=== PATIENT | female | born 1970 | race Caucasian/White ===

== ENCOUNTER 2016-10-24 02:53 | Emergency (ER) | payer OTHER, MEDICAID ==
[2016-10-24 03:08] VITALS: BP 121/89; BMI 27.3
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
== END 2016-10-24 03:58 | disposition home or self-care (01) ==
LOC: ER 02:53
DX: S00.03XA Contusion of scalp, initial encounter (principal); S09.8XXA Other specified injuries of head, initial encounter; Y04.0XXA Assault by unarmed brawl or fight, initial encounter; Y92.9 Unspecified place or not applicable
CPT/HCPCS: 70450; 99282; 99283

== ENCOUNTER 2017-09-28 12:25 | Emergency (ER) | payer OTHER, MEDICAID ==
[2017-09-28 12:32] VITALS: BMI 30.1
--- NOTE | 2017-09-28 12:50 | DR.CP ---
HPI - Time Seen Time seen: 12:40 - PCP Primary Care Physician: TYRONE HILTON - HPI Comment HPI Comment: LEFT SUB SCAPULAR PAIN RADIATING TO LEFT BREAST. PAIN DULL ACHE AND CONSTANT. STARTED DURING THE NIGHT. GETTING WORSE. PAIN INCREASING. TOOK MEDS AT HOME BUT DID NOT HELP. - Complaint Chief Complaint Doctor Comments: CHEST PAIN FOR SEVERAL HOURS. Chief Complaint:: PT C/O LASTNIGHT HURTING AROUND HER LEFT UPPER BACK AND PAIN HAS RADIATED TO UNDER HER LEFT BREASTS TO HER LEFT CHEST,,,,,, PT C/O PAIN IS SOMETIMES PAIN IS SHARP AND DULL . - Reviewed Nurses Notes Review: Yes - Source History Provided: Patient - Mode of Arrival Mode of Arrival: Ambulatory - Timing Onset of Chief Complaint: 09/28/17 Came on: Suddenly Pain: Present Now - Duration Duration: Constant Duration: Hours - Location Chest Pain Radiation Location: Left Shoulder - Context Onset: At rest, While Asleep Cardiac Risk Factors: None PE Risk Factors: None History of: None Prehospital Care: None - Quality Quality: Sharp, Aching - Severity Severity: Moderate - Modifying Factors Worsens: Nothing Impoves: Nothing - Associated Signs and Symptoms Associated Signs and Symptoms: Shortness of Breath. denies: Diaphoresis PMH - PMH Past Medical History: Yes Past Medical History: Anxiety, Arthritis, Depression, Kidney Stones Past Medical History Comment: FIBRO, DDD , BI-POLAR Past Surgical History: Yes Surgical History: , Cholecystectomy, Hysterectomy, Ortho Surgery, Lithotripsy - Family History History of Family Medical Conditions: Yes Family Medical History: Diabetes Mellitus Family Medical History Comment: AFIB - Social History Does patient currently use any type of tobacco product: Yes Have you used tobacco products in the last 12 months: Yes Type of Tobacco Use: Cigarettes How many years tobacco product used: 30 Does any household member use tobacco: No Alcohol Use: None Do you use any recreational Drugs:: No Lives With: Family Lives Where: Home - infectious screening In the last 2 months have you had wt loss of >10#?: NO Have you had fever, night sweats or hemotysis?: No Have you traveled outside the country in the last 6 months?: No Isolation: Standard ROS - Review of Systems Constitutional: Weakness, Fatigue. negative: Chills, Diaphoresis, Fever Eyes: No Symptoms Reported. negative: Eye Pain, Discharge ENTM: No Symptoms Reported. negative: Ear Pain, Nose Discharge, Nose Congestion , Throat Pain Respiratoy: No Symptoms Reported, Non-Productive Cough, Short of Breath. negative: Wheezing, Hemoptysis Cardiovascular: Chest Pain. negative: Palpitations, Syncope Gastrointestinal/Abdominal: Abdominal Pain Genitourinary: No Symptoms Reported. negative: Dysuria, Frequency, Hematuria Neurological: No Symptoms Reported, Weakness, Dizziness Musculoskeletal: No Symptoms Reported Integumentary: No Symptoms Reported Hematologic/Lymphatic: No Symptoms Reported Endocrine: No Symptoms Reported All Other Systems: Reviewed and Negative PE - Vitals Vitals: Temperature 97.6 F Pulse Rate [Apical] 64 Pulse Rate 87 Respiratory Rate 15 Blood Pressure [Left Arm] 117/76 Blood Pressure 140/86 O2 Sat by Pulse Oximetry 96 - General Limitations: No Limitations General Appearance: Alert - Head Head Exam: Normal Inspection - Eyes Eye exam: Normal Appearance - ENT ENT Exam: Normal External Ear Exam - Chest Chest Inspection: Symmetric Chest Wall Rise - Respiratory Respiratory Exam: Normal Lung Sounds Bilat. negative: Chest Wall Tenderness Respiratory Exam: Bilateral Rhonchi, Left Rhonchi, Right Rhonchi, Upper Rhonchi , Lower Rhonchi - Cardiovascular Cardiovascular Exam: Regular Rate, Normal Rhythm, Normal Heart Sounds Pulse: Normal, Radial, Femoral Edema: Normal - Abdominal Exam Abdominal Exam: Normal Bowel Sounds, Soft. negative: Tenderness - Extremities Extremities Exam: Normal Inspection - Back Back Exam: Normal Inspection - Neurologic Neurological Exam: Alert, Oriented X3, CN II-XII Intact. negative: Motor Sensory Deficit - Psychiatric Psychiatric Exam: Normal Affect, Normal Mood - Skin Skin Exam: Normal Color MDM - Differential Diagnosis Differential Diagnosis: Angina, Chest Wall Pain, CHF, Costochondritis, Esophageal Reflux/Spasm, Gastritis, Myocardial Infarction, Pericarditis, Pleuritis, Pancreatitis, Pneumonia, Pneumothorax, Pulmonary Embolus Course - Treatment Treatment: SEE ORDERS. - Education/Counseling Education/Counseling: Patient, Education Educated On: Treatment, Diagnosis, Needs for Follow Up ROR - Labs Reviewed Laboratory Results Reviewed?: Yes Result Diagrams: 09/28/17 13:12 09/28/17 13:12 Laboratory: WBC 8.6 X10^3/uL (3.6-10.0) 09/28/17 13:12 RBC 4.84 X10^6/uL (3.5-5.4) 09/28/17 13:12 Hgb 14.8 g/dL (12.0-16.0) 09/28/17 13:12 Hct 42.8 % (36.0-47.0) 09/28/17 13:12 MCV 88.3 fL (80.0-100.0) 09/28/17 13:12 MCH 30.5 pg (27.0-34.0) 09/28/17 13:12 MCHC 34.5 g/dL (33.0-35.0) 09/28/17 13:12 RDW 14.0 % (11.6-16.5) 09/28/17 13:12 Plt Count 266 X10^3/uL (150.0-450.0) 09/28/17 13:12 MPV 8.2 fL (7.4-11.0) 09/28/17 13:12 Neut % (Auto) 70.2 % (42.0-75.0) 09/28/17 13:12 Lymph % (Auto) 22.1 % (21.0-51.0) 09/28/17 13:12 [place] % (Auto) 4.3 % (0.0-13.0) 09/28/17 13:12 Eos % (Auto) 2.3 % (0.9-2.9) 09/28/17 13:12 Baso % (Auto) 1.1 % (0.2-1.0) H 09/28/17 13:12 Neut # (Auto) 6.0 x10^3/uL (2.2-4.8) H 09/28/17 13:12 Lymph # (Auto) 1.9 X10^3/uL (1.3-2.9) 09/28/17 13:12 [place] # (Auto) 0.4 x10^3/uL (0.3-0.8) 09/28/17 13:12 Eos # (Auto) 0.2 x10^3/uL (0.0-0.2) 09/28/17 13:12 Baso # (Auto) 0.1 X10^3/uL (0.0-0.1) 09/28/17 13:12 Absolute Nucleated RBC 0.1 /100WBC 09/28/17 13:12 D-Dimer < 100 ng/mL (0-400) 09/28/17 13:12 Sodium 138 mmol/L (136-145) 09/28/17 13:12 Corrected Sodium 139 mmol/L (136-145) 09/28/17 13:12 Potassium 4.0 mmol/L (3.5-5.1) 09/28/17 13:12 Chloride 102 mmol/L (98-107) 09/28/17 13:12 Carbon Dioxide 27.8 mmol/L (21-32) 09/28/17 13:12 BUN 11 mg/dL (7-18) 09/28/17 13:12 Creatinine 0.92 mg/dL (0.55-1.02) 09/28/17 13:12 Est GFR (MDRD) Af Amer > 60 (>60) 09/28/17 13:12 Est GFR (MDRD) Non-Af > 60 (>60) 09/28/17 13:12 Glucose 158 mg/dL (65-99) H 09/28/17 13:12 Calcium 8.8 mg/dL (8.5-10.1) 09/28/17 13:12 Corrected Calcium TNP 09/28/17 13:12 Total Bilirubin 0.40 mg/dL (0.2-1.0) 09/28/17 13:12 AST 15 Units/L (15-37) 09/28/17 13:12 ALT 19 Units/L (12-78) 09/28/17 13:12 Alkaline Phosphatase 91 Units/L (46-116) 09/28/17 13:12 Creatine Kinase 54 Units/L (26-192) 09/28/17 13:12 CK-MB (CK-2) < 1.0 ng/mL (0-4.0) 09/28/17 13:12 CK/CKMB % Calc 1.9 % (<4) 09/28/17 13:12 Troponin I < 0.02 ng/mL (0-1.5) 09/28/17 13:12 Total Protein 7.5 g/dL (6.4-8.2) 09/28/17 13:12 Albumin 3.7 g/dL (3.4-5.0) 09/28/17 13:12 Globulin 3.8 g/dL (2.5-4.5) 09/28/17 13:12 Albumin/Globulin Ratio 1.0 Ratio (1.1-2.1) L 09/28/17 13:12 H. pylori IgG Antibody Negative (NEGATIVE) 09/28/17 13:12 - XRAY XRAY Interpreted by: Radiologist XRAY Findings: REPORT DISCUSS WITH PATIENT. - EKG Rhythm: NSR (EKG NOTED.) - Diagnosis Discharge Problem: Chest pain Qualifiers: Chest pain type: precordial pain Qualified Code(s): R07.2 - Precordial pain - Discharge Plan Disposition: 01 HOME, SELF-CARE Condition: Stable - Follow ups/Referrals Follow ups/Referrals: Rajat Gastelum [Primary Care Provider] - 09/29/17 - Instructions Instructions: Chest Pain Observation Additional Instructions: RETURN TO ED IF WORSE.
[2017-09-28] MEDS ORDERED: NITROSTAT SL PRN (12:52)
[2017-09-28] MEDS ORDERED: PEPCID 20 MG IV PREMIX* 20 MG/50 ML BAG IV ONE ×2 (12:53→12:57)
[2017-09-28] MEDS ORDERED: ASPIRIN ONE (12:57)
[2017-09-28] MEDS ORDERED: ASPIRIN 81 MG CHEWTAB PO SCH (13:00)
[2017-09-28 13:20] LABS: BASOPHILS # (AUTO) 0.1 X10^3/uL (0.0-0.1); BASOPHILS % (AUTO) 1.1 % (0.2-1.0); EOSINOPHILS # (AUTO) 0.2 x10^3/uL (0.0-0.2); EOSINOPHILS % (AUTO) 2.3 % (0.9-2.9); HEMATOCRIT 42.8 % (36.0-47.0); HEMOGLOBIN 14.8 g/dL (12.0-16.0); LYMPHOCYTES # (AUTO) 1.9 X10^3/uL (1.3-2.9); LYMPHOCYTES % (AUTO) 22.1 % (21.0-51.0); MEAN CORPUSCULAR HEMOGLOBIN 30.5 pg (27.0-34.0); MEAN CORPUSCULAR HGB CONC 34.5 g/dL (33.0-35.0); MEAN CORPUSCULAR VOLUME 88.3 fL (80.0-100.0); MEAN PLATELET VOLUME 8.2 fL (7.4-11.0); MONOCYTES # (AUTO) 0.4 x10^3/uL (0.3-0.8); MONOCYTES % (AUTO) 4.3 % (0.0-13.0); NEUTROPHILS % (AUTO) 70.2 % (42.0-75.0); PLATELET COUNT 266 X10^3/uL (150.0-450.0); RED BLOOD COUNT 4.84 X10^6/uL (3.5-5.4); WHITE BLOOD COUNT 8.6 X10^3/uL (3.6-10.0)
--- NOTE | 2017-09-28 13:28 | RAD ---
HISTORY: Chest pain. Study: Portable chest. Comparison: None. Findings: The trachea is midline. The cardiac silhouette is unremarkable. No obvious focal consolidation, ple ural effusion, or pneumothorax. Partially visualized cervical hardware. The osseous structures are o therwise unremarkable. IMPRESSION: No acute cardiopulmonary disease. Reported By:
[2017-09-28 13:36] LABS: BLOOD UREA NITROGEN 11 mg/dL (7-18); CALCIUM 8.8 mg/dL (8.5-10.1); CARBON DIOXIDE 27.8 mmol/L (21-32); CHLORIDE 102 mmol/L (98-107); COR NA(FOR HYPERGLY) 139 mmol/L (136-145); CREATININE 0.92 mg/dL (0.55-1.02); SODIUM 138 mmol/L (136-145); TROPONIN I < 0.02 ng/mL (0-1.5); eGFR BLACK RACES > 60 (>60); eGFR NON BLACK RACES > 60 (>60)
[2017-09-28 13:40] LABS: ALANINE AMINOTRANSFERASE 19 Units/L (12-78); ALBUMIN 3.7 g/dL (3.4-5.0); ALKALINE PHOSPHATASE 91 Units/L (46-116); ASPARTATE AMINO TRANSFERASE 15 Units/L (15-37); CKMB % 1.9 % (<4); CREATINE KINASE 54 Units/L (26-192); CREATINE KINASE MB < 1.0 ng/mL (0-4.0); TOTAL PROTEIN 7.5 g/dL (6.4-8.2)
[2017-09-28] MEDS ORDERED: TORADOL 30 MG VIAL IVP ONE (13:59)
[2017-09-28 14:08] VITALS: BP 117/76
[2017-09-28] MEDS ORDERED: TORADOL 30 MG VIAL ONE (14:08)
== END 2017-09-28 14:35 | disposition home or self-care (01) ==
LOC: ER 12:42
DX: R07.2 Precordial pain (principal)
CPT/HCPCS: 36415; 71045; 80053; 82550; 82553; 84484; 85025; 85378; 86677; 93005; 93010; 96365; 96374; 96375; 99283; A4222; S0028; J1885

== ENCOUNTER 2020-07-25 10:14 | Observation (INO) ==
[2020-07-25 10:25] VITALS: BMI 28.3
--- NOTE | 2020-07-25 10:37 | DR.CP ---
HPI Time Seen Time Seen by Provider: 07/25/20 10:24 HPI Comment HPI Comment: PATIENT IS 49YR OLD FEMALE IN ER WITH CHEST PAIN. PAIN SHARP, 8/10 RADIATING TO THE BACK. DENIES SIMILAR PAIN IN THE PAST. PAIN WAS CONTINOUS AND LASTED OVER 30MINS. PATIENT DID NOT TAKE MEDICATION FOR PAIN. HISTORY DM AND F IBROMYALGIA. NO FEVER, COUGH OR CONGESTION. HAVE NOT BEING AROUND COVID 19 VIRUS PATIENT. PAIN ASSOCIATED WITH SOB AND WEAKNESS. Complaint Chief Complaint Doctor Comments: CHEST PAIN UNDER LEFT BREAST TIMES 30MINS TODAY. COVID-19 Coronavirus risk:travel/contact w/high risk person: No Has patient experienced Coronavirus symptoms: No Reviewed Nurses Notes Review: Yes Source History Provided: Patient PMH PMH Past Medical History: Diabetes Past Surgical History: Yes Surgical History: Hysterectomy Family History Family Medical History: Diabetes Mellitus Social History Do you use any recreational Drugs:: No Travel Risk Coronavirus risk:travel/contact w/high risk person: No Has patient experienced Coronavirus symptoms: No ROS Review of Systems Constitutional: No Symptoms Reported, See HPI, Weakness and Fatigue; negative Fever Eyes: No Symptoms Reported and See HPI ENTM: No Symptoms Reported and See HPI; negative Nose Discharge and Nose Congestion Respiratoy: Short of Breath; negative Moist Cough and Wheezing Cardiovascular: See HPI and Chest Pain; negative Edema and Palpitations Gastrointestinal/Abdominal: No Symptoms Reported and See HPI; negative Abdominal Pain, Diarrhea and Vomiting Genitourinary: No Symptoms Reported and See HPI; negative Dysuria, Frequency and Hematuria Neurological: See HPI, Headache and Weakness; negative Dizziness Musculoskeletal: See HPI and Muscle Pain; negative Back Pain Integumentary: No Symptoms Reported and See HPI; negative Change in Color, Rash and Juandice Hematologic/Lymphatic: No Symptoms Reported and See HPI; negative Easy Bruising and Swollen Glands Endocrine: No Symptoms Reported and See HPI; negative Increased Thirst and Increased Urine Psychiatric: No Symptoms Reported and See HPI All Other Systems: Reviewed and Negative PE Vitals Vitals: Temperature 98.1 F Pulse Rate [Brachial] 64 Pulse Rate 57 Respiratory Rate 16 Blood Pressure [Left Arm] 145/79 Blood Pressure 123/73 O2 Sat by Pulse Oximetry 96 General Limitations: No Limitations General Appearance: Alert and In No Apparent Distress Head Head Exam: Normal Inspection and Atraumatic Eyes Eye exam: Normal Appearance and PERRL; negative Scleral Icterus and Conjunctival Injection ENT ENT Exam: Normal Exam, Normal Oropharynx, Normal External Ear Exam and TM's Normal Bilaterally Chest Chest Inspection: Normal Inspection and Symmetric Chest Wall Rise; negative Tenderness Respiratory Respiratory Exam: Normal Lung Sounds Bilat; negative Accessory Muscle Use, Chest Wall Tenderness and Respiratory Distress Respiratory Exam: Bilateral: Clear to Auscultation Cardiovascular Cardiovascular Exam: Regular Rate, Normal Rhythm and Normal Heart Sounds; negative Systolic Murmur and Diastolic Murmur Pulse: Normal Edema: Normal Abdominal Exam Abdominal Exam: Normal Inspection, Normal Bowel Sounds and Soft; negative Tenderness Extremities Extremities Exam: Normal Inspection and Normal Capillary Refill; negative Tenderness, Edema and Calf Tenderness Back Back Exam: Normal Inspection; negative (R) CVA Tenderness and (L) CVA Tenderness Neurologic Neurological Exam: Alert, Oriented X3 and CN II-XII Intact; negative Motor Sensory Deficit Psychiatric Psychiatric Exam: Normal Affect and Normal Mood Skin Skin Exam: Warm, Dry, Intact and Normal Color MDM Additional Information Additional Information Obtained From: Old Records Differential Diagnosis Differential Diagnosis: Chest Wall Pain, CHF, Costochondritis, Gastritis, Myocardial Infarction, Pericarditis, Pleuritis, Pancreatitis, Pneumonia, Pneumothorax and Pulmonary Embolus COURSE Treatment Treatment: SEE ORDERS. Consultation Consultation Comments: DISCUSSED PATIENT WITH DR. HANSEN. HE WILL ADMIT PATIENT. Education/Counseling Education/Counseling: Patient Educated On: Diagnosis ROR Labs Reviewed Laboratory Results Reviewed?: Yes Result Diagrams: 07/26/20 06:04 07/26/20 06:04 Laboratory: WBC 6.9 X10^3/uL (3.6-10.0) 07/25/20 10:34 RBC 4.71 X10^6/uL (3.5-5.4) 07/25/20 10:34 Hgb 14.4 g/dL (12.0-16.0) 07/25/20 10:34 Hct 42.5 % (36.0-47.0) 07/25/20 10:34 MCV 90.3 fL (80.0-100.0) 07/25/20 10:34 MCH 30.6 pg (27.0-34.0) 07/25/20 10:34 MCHC 33.9 g/dL (33.0-35.0) 07/25/20 10:34 RDW 14.3 % (11.6-16.5) 07/25/20 10:34 Plt Count 249 X10^3/uL (150.0-450.0) 07/25/20 10:34 MPV 8.0 fL (7.4-11.0) 07/25/20 10:34 Neut % (Auto) 63.8 % (42.0-75.0) 07/25/20 10:34 Lymph % (Auto) 23.4 % (21.0-51.0) 07/25/20 10:34 [place] % (Auto) 8.8 % (0.0-13.0) 07/25/20 10:34 Eos % (Auto) 3.0 % (0.9-2.9) H 07/25/20 10:34 Baso % (Auto) 1.0 % (0.2-1.0) 07/25/20 10:34 Neut # (Auto) 4.4 x10^3/uL (2.2-4.8) 07/25/20 10:34 Lymph # (Auto) 1.6 X10^3/uL (1.3-2.9) 07/25/20 10:34 [place] # (Auto) 0.6 x10^3/uL (0.3-0.8) 07/25/20 10:34 Eos # (Auto) 0.2 x10^3/uL (0.0-0.2) 07/25/20 10:34 Baso # (Auto) 0.1 X10^3/uL (0.0-0.1) 07/25/20 10:34 Absolute Nucleated RBC 0.0 /100WBC 07/25/20 10:34 D-Dimer 0.25 ug/ml (0.0-0.57) 07/25/20 10:34 Sample Site Lbra 07/25/20 12:38 ABG pH 7.400 (7.35-7.45) 07/25/20 12:38 ABG pCO2 47.0 mmHg (35.0-45.0) H 07/25/20 12:38 ABG pO2 83.0 mmHg (80.0-100.0) 07/25/20 12:38 ABG HCO3 29.1 mmol/L (22-26) H 07/25/20 12:38 ABG O2 Saturation 96.0 % (90-100) 07/25/20 12:38 ABG Base Excess 3.6 mmol/L (-2.0-2.0) H 07/25/20 12:38 John Test N/a 07/25/20 12:38 A-a Gradient 8.0 mmHg 07/25/20 12:38 FiO2 21.0 07/25/20 12:38 Blood Gas Comments Pt zeina well elj 07/25/20 12:38 Sodium 140 mmol/L (136-145) 07/25/20 10:34 Corrected Sodium 142 mmol/L (136-145) 07/25/20 10:34 Potassium 4.4 mmol/L (3.5-5.1) 07/25/20 10:34 Chloride 105 mmol/L (98-107) 07/25/20 10:34 Carbon Dioxide 26.2 mmol/L (21-32) 07/25/20 10:34 BUN 14 mg/dL (7-18) 07/25/20 10:34 Creatinine 0.92 mg/dL (0.55-1.02) 07/25/20 10:34 Est GFR (MDRD) Af Amer > 60 (>60) 07/25/20 10:34 Est GFR (MDRD) Non-Af > 60 (>60) 07/25/20 10:34 Glucose 163 mg/dL (65-99) H 07/25/20 10:34 Calcium 9.2 mg/dL (8.5-10.1) 07/25/20 10:34 Corrected Calcium TNP 07/25/20 10:34 Ferritin 135 ng/mL (8-252) 07/25/20 11:52 Total Bilirubin 0.20 mg/dL (0.2-1.0) 07/25/20 10:34 AST 15 Units/L (15-37) 07/25/20 10:34 ALT 14 Units/L (12-78) 07/25/20 10:34 Alkaline Phosphatase 94 Units/L (46-116) 07/25/20 10:34 Creatine Kinase 63 Units/L (26-192) 07/25/20 10:34 CK-MB (CK-2) 1.1 ng/mL (0-4.0) 07/25/20 10:34 CK/CKMB % Calc 1.8 % (<4) 07/25/20 10:34 Troponin I < 0.02 ng/mL (0-1.5) 07/25/20 10:34 C-Reactive Protein 2.80 mg/L (0-3.0) 07/25/20 11:52 Total Protein 6.9 g/dL (6.4-8.2) 07/25/20 10:34 Albumin 3.4 g/dL (3.4-5.0) 07/25/20 10:34 Globulin 3.5 g/dL (2.5-4.5) 07/25/20 10:34 Albumin/Globulin Ratio 1.0 Ratio (1.1-2.1) L 07/25/20 10:34 SARS-CoV-2 (PCR) Positive (NEGATIVE) A 07/25/20 11:59 Influenza Type A (PCR) Negative (NEGATIVE) 07/25/20 11:59 Influenza Type B (PCR) Negative (NEGATIVE) 07/25/20 11:59 RSV (PCR) Negative (NEGATIVE) 07/25/20 11:59 XRAY XRAY Interpreted by: Radiologist (REPORTS NOTED AND DISCUSSED WITH PATIENT.) and Self EKG Rate: 69 [place]: Normal Rhythm: NSR Block: None Hypertrophy: None ST: Normal Opioid Opioid Risk Tool Age (Josh box if 16-45): No History of Preadolescent Sexual Abuse: No Total: 0 Total Score Risk Category: Low Risk Copyright: Kendrick HURLEY predicting aberrant behaviors Diagnosis Discharge Problem: Chest pain Qualifiers: Chest pain type: unspecified Qualified Code(s): R07.9 - Chest pain, unspecified Instructions Instructions: Nonspecific Chest Pain Dehydration, Adult, [id number] Chest Wall Pain Forms: Excuse From Work or School Precautions for COVID19 Patient Portal Social Distancing
[2020-07-25 10:44] LABS: BASOPHILS # (AUTO) 0.1 X10^3/uL (0.0-0.1); EOSINOPHILS # (AUTO) 0.2 x10^3/uL (0.0-0.2); HEMATOCRIT 42.5 % (36.0-47.0); HEMOGLOBIN 14.4 g/dL (12.0-16.0); LYMPHOCYTES # (AUTO) 1.6 X10^3/uL (1.3-2.9); LYMPHOCYTES % (AUTO) 23.4 % (21.0-51.0); MEAN CORPUSCULAR HEMOGLOBIN 30.6 pg (27.0-34.0); MEAN CORPUSCULAR HGB CONC 33.9 g/dL (33.0-35.0); MEAN CORPUSCULAR VOLUME 90.3 fL (80.0-100.0); MONOCYTES # (AUTO) 0.6 x10^3/uL (0.3-0.8); MONOCYTES % (AUTO) 8.8 % (0.0-13.0); NEUTROPHILS # (AUTO) 4.4 x10^3/uL (2.2-4.8); NEUTROPHILS % (AUTO) 63.8 % (42.0-75.0); PLATELET COUNT 249 X10^3/uL (150.0-450.0); RED BLOOD COUNT 4.71 X10^6/uL (3.5-5.4); RED CELL DISTRIBUTION WIDTH 14.3 % (11.6-16.5); WHITE BLOOD COUNT 6.9 X10^3/uL (3.6-10.0)
--- NOTE | 2020-07-25 10:54 | RAD ---
HISTORYSOB, CHEST PAINSTUDYCHEST, 1 [id number] cardiomediastinal silhouette is stable. The lungs are clear without evidence of airspace disease or effusion. No pneumothorax. The bony thorax appears intact. Partially visualized ACDF hardware.IMPRESSIONNo acute cardiopulmonary disease.Electronically signed by: DESMOND ANDERSEN (Jul 25, 2020 10:53:39)
[2020-07-25 11:02] LABS: BLOOD UREA NITROGEN 14 mg/dL (7-18); CALCIUM 9.2 mg/dL (8.5-10.1); CARBON DIOXIDE 26.2 mmol/L (21-32); CHLORIDE 105 mmol/L (98-107); COR NA(FOR HYPERGLY) 142 mmol/L (136-145); CREATININE 0.92 mg/dL (0.55-1.02); SODIUM 140 mmol/L (136-145); TROPONIN I < 0.02 ng/mL (0-1.5); eGFR NON BLACK RACES > 60 (>60)
[2020-07-25 11:06] LABS: ALANINE AMINOTRANSFERASE 14 Units/L (12-78); ALBUMIN 3.4 g/dL (3.4-5.0); ALKALINE PHOSPHATASE 94 Units/L (46-116); ASPARTATE AMINO TRANSFERASE 15 Units/L (15-37); CKMB % 1.8 % (<4); CREATINE KINASE 63 Units/L (26-192); CREATINE KINASE MB 1.1 ng/mL (0-4.0); TOTAL PROTEIN 6.9 g/dL (6.4-8.2)
[2020-07-25] MEDS ORDERED: NS 100 ML IV 100 ML IV ONE (11:58)
--- NOTE | 2020-07-25 12:42 | CT ---
HISTORYCHEST PAIN, SOBSTUDYCTA CHESTCOMPARISONNoneTECHNIQUEPulmonary angiogram protocol was performed after the administration of contrast. 3D images were performed. CT scan was performed following ALARA (As low as Reasonably Achievable).Coronal and Sagittal reformatted images were performed.FINDINGSThe thyroid gland is mildly enlarged. There is no axillary or mediastinal adenopathy. The ascending aorta measures approximately 4 by 3.8 centimeters. The pulmonary root iismeasuring approximately 31 millimeters. There is no pleural or pericardial effusions. No adrenal masses. Patient is status post cholecystectomy the spleen is no enlarged. There is no evidence of pulmonary embolism. No filling defects are present.Lung windows there is no evidence of focal pneumonia or pneumothorax. No significant bronchiectasis or atelectasis. No focal lung nodules.Bone windows there is no evidence of aggressive bone lesions. No acute fracturesIMPRESSIONNo radiographic evidence of pulmonary embolismNo focal pneumonia. Upper limits of normal ascending aorta.Electronically signed by: Marianne Horta (Jul 25, 2020 12:40:32)
[2020-07-25 12:44] LABS: ABG BASE EXCESS 3.6 mmol/L (-2.0-2.0); ABG HCO3 29.1 mmol/L (22-26)
[2020-07-25] MEDS ORDERED: ESTRADIOL TRANSDERMAL SCH (13:46)
[2020-07-25] MEDS ORDERED: INJECTOR SUBCUT SCH (13:46)
[2020-07-25] MEDS ORDERED: SEMAGLUTIDE SUBCUT SCH (13:46)
[2020-07-25] MEDS ORDERED: NORCO 10/325 TAB PO PRN (13:46)
[2020-07-25] MEDS ORDERED: IVERMECTIN PO SCH (14:00)
[2020-07-25 14:31] LABS: BILIRUBIN,URINE NEGATIVE (NEGATIVE); BLOOD/HEMOGLOBIN,URINE NEGATIVE (NEGATIVE); GLUCOSE, URINE NEGATIVE (NEGATIVE); KETONES,URINE NEGATIVE (NEGATIVE); LEUKOCYTE ESTERASE ,URINE NEGATIVE (NEGATIVE); NITRITES,URINE NEGATIVE (NEGATIVE); PH,URINE 6.5 (5.0 - 8.0); PROTEIN,URINE NEGATIVE (NEGATIVE); UROBILINOGEN,URINE NORMAL (NORMAL)
[2020-07-25 14:32] LABS: APPEARANCE,URINE CLEAR (CLEAR); COLOR,URINE YELLOW (YELLOW)
[2020-07-25] MEDS ORDERED: NS 1000 ML 1,000 ML ONE (15:08)
[2020-07-25] MEDS ORDERED: IVERMECTIN ONE (15:08)
[2020-07-25] MEDS: NS 1000 ML 1,000 ML IV SCH (15:28)
[2020-07-25 18:39] LABS: CKMB % 1.7 % (<4); CREATINE KINASE 69 Units/L (26-192); CREATINE KINASE MB 1.2 ng/mL (0-4.0); TROPONIN I < 0.02 ng/mL (0-1.5)
[2020-07-25] MEDS ORDERED: XANAX ONE (21:49)
[2020-07-25] MEDS ORDERED: PROTONIX TAB 40 MG PO ONE (21:49)
[2020-07-25] MEDS ORDERED: LOVENOX INJ 30 MG SYR SC ONE (21:49)
[2020-07-25] MEDS ORDERED: PEPCID TAB 20 MG ONE (21:49)
[2020-07-25] MEDS: FLONASE NASAL SPRAY ENOSTRIL SCH (21:52)
[2020-07-25] MEDS: LITHIUM CARBONATE (PLAIN) PO SCH (21:52)
[2020-07-25] MEDS: GLUCOPHAGE PO SCH (21:52)
[2020-07-25] MEDS: LOVENOX INJ 30 MG SYR SC SCH (21:52)
[2020-07-25] MEDS: PROTONIX TAB 40 MG PO SCH (21:53)
[2020-07-25] MEDS: PEPCID TAB 20 MG PO SCH (21:53)
[2020-07-25] MEDS: XANAX PO SCH (21:54)
[2020-07-25] MEDS: PAXIL PO SCH (22:33)
[2020-07-26 01:10] LABS: CKMB % 1.3 % (<4); CREATINE KINASE MB 0.8 ng/mL (0-4.0)
[2020-07-26] MEDS: NS 1000 ML 1,000 ML IV SCH ×2 (03:52→06:00)
[2020-07-26 05:00] LABS: ABG ALLEN TEST POS; ABG BASE EXCESS 1.8 mmol/L (-2.0-2.0); ABG HCO3 27.7 mmol/L (22-26)
--- NOTE | 2020-07-26 06:34 | RAD ---
HISTORYcovidSTUDYAP [id number] normal appearance of heart and lungs and mediastinum. There is no evidence for developing infiltrate, consolidation, edema or pleural fluid.IMPRESSIONNo change; no acute chest findings.Electronically signed by: JESSICA PAZ (Jul 26, 2020 06:33:04)
[2020-07-26 06:51] LABS: BASOPHILS # (AUTO) 0.1 X10^3/uL (0.0-0.1); BASOPHILS % (AUTO) 0.9 % (0.2-1.0); EOSINOPHILS # (AUTO) 0.2 x10^3/uL (0.0-0.2); EOSINOPHILS % (AUTO) 3.5 % (0.9-2.9); HEMATOCRIT 41.3 % (36.0-47.0); HEMOGLOBIN 13.6 g/dL (12.0-16.0); LYMPHOCYTES # (AUTO) 2.2 X10^3/uL (1.3-2.9); LYMPHOCYTES % (AUTO) 35.4 % (21.0-51.0); MEAN CORPUSCULAR HEMOGLOBIN 30.1 pg (27.0-34.0); MEAN CORPUSCULAR VOLUME 91.3 fL (80.0-100.0); MEAN PLATELET VOLUME 8.5 fL (7.4-11.0); MONOCYTES # (AUTO) 0.5 x10^3/uL (0.3-0.8); MONOCYTES % (AUTO) 7.8 % (0.0-13.0); NEUTROPHILS # (AUTO) 3.2 x10^3/uL (2.2-4.8); NEUTROPHILS % (AUTO) 52.4 % (42.0-75.0); PLATELET COUNT 235 X10^3/uL (150.0-450.0); RED BLOOD COUNT 4.52 X10^6/uL (3.5-5.4); RED CELL DISTRIBUTION WIDTH 14.3 % (11.6-16.5); WHITE BLOOD COUNT 6.1 X10^3/uL (3.6-10.0)
[2020-07-26 07:03] LABS: ALANINE AMINOTRANSFERASE 11 Units/L (12-78); ALBUMIN 2.9 g/dL (3.4-5.0); ALKALINE PHOSPHATASE 91 Units/L (46-116); ASPARTATE AMINO TRANSFERASE 13 Units/L (15-37); BLOOD UREA NITROGEN 15 mg/dL (7-18); CALCIUM 8.5 mg/dL (8.5-10.1); CARBON DIOXIDE 27.1 mmol/L (21-32); CHLORIDE 108 mmol/L (98-107); CHOL/HDL RATIO 4.3 (0.0-5.0); CHOLESTEROL 183 mg/dL (0-200); COR CA(FOR HYPOALB) 9.4 mg/dL (8.5-10.1); COR NA(FOR HYPERGLY) 144 mmol/L (136-145); CREATININE 0.81 mg/dL (0.55-1.02); HDL CHOLESTEROL 43 mg/dL (40-60); MAGNESIUM 1.8 mg/dL (1.7-2.9); SODIUM 142 mmol/L (136-145); TOTAL PROTEIN 6.2 g/dL (6.4-8.2); TRIGLYCERIDES 335 mg/dL (0-150); eGFR NON BLACK RACES > 60 (>60)
[2020-07-26] MEDS ORDERED: GLUCOPHAGE ONE (08:09)
[2020-07-26] MEDS ORDERED: MOBIC TAB 15 MG PO SCH (09:00)
[2020-07-26] MEDS: PAXIL PO SCH (10:04)
[2020-07-26] MEDS: GLUCOPHAGE PO SCH (10:04)
[2020-07-26] MEDS: LOVENOX INJ 30 MG SYR SC SCH (10:05)
[2020-07-26] MEDS: XANAX PO SCH (10:05)
[2020-07-26] MEDS: LITHIUM CARBONATE (PLAIN) PO SCH (10:05)
[2020-07-26] MEDS: PEPCID TAB 20 MG PO SCH (10:06)
[2020-07-26] MEDS: PROTONIX TAB 40 MG PO SCH (10:06)
[2020-07-26] MEDS: FLONASE NASAL SPRAY ENOSTRIL SCH (10:07)
[2020-07-26 11:10] LABS: CREATINE KINASE 50 Units/L (26-192); CREATINE KINASE MB < 1.0 ng/mL (0-4.0); TROPONIN I < 0.02 ng/mL (0-1.5)
[2020-07-26 13:41] VITALS: BP 120/75
--- NOTE | 2020-09-03 14:30 | DR.CARTERS ---
Short Stay Summary - Admission Date Date of Admission: 07/25/20 - Discharge Date Discharge Date: 07/26/20 - Admission Diagnoses (1) Chest pain, rule out acute myocardial infarction Status: Acute (2) Shortness of breath Status: Acute (3) COVID-19 Status: Acute - Hospital Course Hospital Course: IS A 49 YEAR OLD PATIENT OF OURS. WHO PRESENTED TO THE ER WITH COMPLAINTS OF CHEST PAIN. SYMPTOMS STARTED ABOUT 30 MINUTES PRIOR TO ARRIVAL TODAY. SHE DESCRIBED PAIN SHARP, RADIATING TO THE BACK AND LEFT BREAST, AND IT WAS RATED A 8/10. SHE DENIED SIMILAR PAIN IN THE PAST. SHE REPORTS THAT PAIN WAS CONTINUOUS AND LASTED OVER 30 MINUTES. ASSOCIATED SYMPTOMS INCLUDE SHORTNESS OF BREATH AND WEAKNESS. PMH INCLUDES DIABETES, FIBROMYALGIA, AND HYSTERECTOMY. SHE DID TEST POSITIVE FOR COVID SEVERAL WEEKS AGO AND HAS BEEN RECEIVING TREATMENT. ON ARRIVAL TO THE ER, HER VITALS WERE 98.1-64-18-97%-145/79. LABS WERE OBTAINED. GLUCOSE WAS SLIGHTLY ELEVATED AT 163, OTHERWISE, SHE IS HEMODYNAMICALLY STABLE. CARDIAC ENZYMES ARE WITHIN NORMAL LIMITS. COVID POSITIVE. INFLUENZA AND RSV NEGATIVE. ABG REVEALED: PH 7.400, PC02 47, P02 83, HC03 29.1, 02 SAT 96, BASE EXCESS 3.6, A-A GRADIENT 8.0, FI02 21.0. URINALYSIS IS UNREMARKABLE. A CHEST XRAY WAS OBTAINED AND REVEALED: NO ACUTE CARDIOPULMONARY DISEASE. EKG REVEALED: SINUS RHYTHM WITH HR 61. A CHEST CTA WAS OBTAINED AND REVEALED: No radiographic evidence of pulmonary embolism. No focal pneumonia. Upper limits of normal ascending aorta. EKG REVEALED: SINUS RHYHTM WITH HR 61. SHE WAS ADMITTED TO THE HOSPITAL FOR FURTHER EVALUATION AND TREATMENT OF CHEST PAIN, RULE OUT ACUTE PR, SOB, AND COVID-19. SHE WAS STARTED ON NORMAL SALINE AT 75 ML/HR, OTBS ACHS, FLONASE 2 SPRAYS TO EACH NOSTRIL BID, GLUCOPHAGE 500MG PO BID, LITHIUM 300MG PO BID, LOVENOX 30MG SC BID, PEPCID 20MG PO BID, PROTONIX 40MG PO BID, XANAX 1MG PO BID, MOBIC 15MG PO DAILY, AND PAXIL 30MG PO DAILY. OTHERWISE, WE PLANNED TO FOLLOW UP WITH AM LABS AND CONTINUE TO MONITOR. ON MORNING ROUNDS, PATIENT IS ALERT AND ORIENTED, LYING IN BED ON MORNING ROUNDS. SHE DENIES CHEST PAIN OR SHORTNESS OF BREATH THIS MORNING. SHE CONTINUES WITH AN OCCASIONAL NON-PRODUCTIVE COUGH. ON EXAMINTION, HEART IS REGULAR IN RATE AND RHYTHM. BILATERAL LUNGS ARE NOTED WITH DIMINISHED LUNG SOUNDS THROUGHOUT. ABDOMEN IS ROUND, SOFT, AND NON-TENDER WITH NORMAL BOWEL SOUNDS NOTED IN ALL QUADRANTS. HER VITALS THIS MORNING ARE: 98.7-65-20-96%-110/61. LABS WERE OBTAINED. ABNORMAL LAB VALUES INCLUDE THE FOLLOWING: CHLORIDE 108, GLUCOSE 183, AST 13, ALT 11, TOTAL PROTEIN 6.2, ALBUMIN 2.9, TRIGLYCERIDES 335. CARDIAC ENZYMES WERE WITHIN NORMAL LIMITS. A CHEST XRAY WAS REPEATED THIS MORNING AND REVEALED: Similar normal appearance of heart and lungs and mediastinum. There is no evidence for developing infiltrate, consolidation, edema or pleural fluid. NO CHANGES NOTED TO EKGs. WE PLANNED FOR DISCHARGE. INSTRUCTIONS FOR MEDICATIONS AND FOLLOW UP WERE DISCUSSED WITH PATIENT. SHE VERBALIZED UNDERSTANDING OF ALL ORDERS. SHE WAS DISCHARGED HOME IN STABLE CONDITION WITH INSTRUCTIONS TO CONTINUE HER CURRENT MEDICATIONS AND TO FOLLOW UP IN THE OFFICE IN ONE WEEK. TIME SPENT ON CLINCIAL ASSESSMENT, REVIEWING LABS AND IMAGING, DECISION MAKING, DOCUMENTATION, AND PREPARING DISCHARGE PAPERS WAS GREATER THAN 75 MINUTES. - Discharge Medications Discharge Medications: Home Medication List Eliquis 2.5 mg PO BID 07/25/20 [History] Ozempic 0.5 mg SUBCUT QWEEK 07/25/20 [History] alprazolam 1 mg PO BID 07/25/20 [History] azithromycin 250 mg PO .ASDIRECTION 07/25/20 [History] estradiol [Theodora] 1 patch TRANSDERMAL 2XW 07/25/20 [History] famotidine 20 mg PO BID 07/25/20 [History] fluticasone prp-sod.chl,bicarb 2 ea INTRANASAL BID 07/25/20 [History] hydrocodone-acetaminophen 1 tab PO Q6H PRN 07/25/20 [History] hydroxychloroquine 200 mg PO BID 07/25/20 [History] lithium carbonate 300 mg PO BID 07/25/20 [History] meloxicam 15 mg PO DAILY 07/25/20 [History] metformin 500 mg PO BID 07/25/20 [History] methylprednisolone 0 mg PO PER PKG DIR 07/25/20 [History] pantoprazole 40 mg PO BID 07/25/20 [History] paroxetine HCl 30 mg PO QAM 07/25/20 [History] Prescriptions: - Discharge Plan Disposition: HOME, SELF-CARE Condition: Stable - Follow up/Referrals Follow up/Referrals: Rajat Gastelum [Primary Care Provider] - 1 WEEK - Instructions Instructions: Nonspecific Chest Pain, Dehydration, Adult, [id number], Chest Wall Pain Additional Instructions: DIET TOLERATED. ACTIVITY TOLERATED. TELEMEDICINE VISIT IN 1 WEEK Forms: Excuse From Work or School, Precautions for COVID19, Patient Portal, Social Distancing
== END 2020-07-26 14:40 | disposition home or self-care (01) ==
LOC: MED/SURG 10:14 → ER 10:14 → OBS 13:16 → MED/SURG 21:24
PROVIDERS: ADMIT Internal Medicine; ATTEND Internal Medicine
DX: R79.89 Other specified abnormal findings of blood chemistry; U07.1 COVID-19; R79.82 Elevated C-reactive protein (CRP); R07.89 Other chest pain; R06.02 Shortness of breath; E11.65 Type 2 diabetes mellitus with hyperglycemia